=== PATIENT | female | born 1955 | race Caucasian/White ===

== ENCOUNTER 2019-11-18 08:58 | Outpatient (CLI) | payer BC, SELFPAY ==
[2019-11-18 09:32] LABS: Blood Urea Nitrogen 12 mg/dL (7-17); Calcium 9.3 mg/dL (8.4-10.2); Carbon Dioxide 28 mmol/L (22-30); Chloride 99 mmol/L (98-107); Estimated Glomerular Filt Rate > 60; Glucose 215 mg/dL (65-105); Sodium 135 mmol/L (137-145)
== END 2019-11-18 08:59 | disposition home or self-care (01) ==
LOC: ANHSURGERY 09:01
PROVIDERS: Anesthesiology; PCP Internal Medicine Infectious Disease; Visit Provider Orthopaedic Surgery
DX: E11.9 Type 2 diabetes mellitus without complications (principal)
CPT/HCPCS: 36415; 80048

== ENCOUNTER 2019-11-22 01:44 | Day surgery (SDC) | payer BC, SELFPAY ==
[2019-11-14 09:09] VITALS: BMI 35.7
[2019-11-22] VITALS (10 sets, daily range): BP systolic 120–145; BP diastolic 57–76; PULSE 52–57; RESP 10–20; TEMP 36.5–36.8; O2SAT 92–99
[2019-11-22] MEDS: LACTATED RINGERS 1,000 ML 30 ML IV CONT (07:30)
--- NOTE | 2019-11-22 08:17 | WPDHPUPDATE1 ---
History and Physical Update Update Date/Time: 11/22/19 08:17 History and Physical has been reviewed, including an updated exam of the patient. There are NO changes in the patient's condition. Risks, benefits, and alternatives have been discussed and questions answered. Patient agrees to proceed with procedure.
--- NOTE | 2019-11-22 08:34 | WPDANESEPPF ---
Anes - Initial Pre Proc Eval Procedure: Operation Date: 11/22/19 09:00 Proposed Procedures p Left Knee Arthroscopic Medial Meniscectomy - Enoch Pate MD Date/Time: 11/22/19 08:34 Surgeon: Enoch Pate MD Pre Op Diagnosis: Left Knee Medial Meniscus Tear Patient Data Age: 64 Gender: F Height: 1.65 m Weight: 99.1 kg Last Vital Signs Temp 36.8 C 11/22/19 07:05 Pulse 53 L 11/22/19 07:05 Resp 20 11/22/19 07:05 BP 122/73 11/22/19 07:05 Pulse Ox 97 11/22/19 07:05 Allergies Allergy/AdvReac Type Severity Reaction Status Date / Time codeine AdvReac Unknown n/v Verified 11/22/19 07:39 Home Medications Medication Instructions Recorded Confirmed Type aspirin 81 mg PO DAILY 11/14/19 11/22/19 History atorvastatin 20 mg PO DAILY 11/14/19 11/22/19 History dulaglutide [Trulicity] 1.5 mg SUBCUT WEEKLY 11/14/19 11/22/19 History ezetimibe 10 mg PO HS 11/14/19 11/22/19 History fluoxetine 40 mg PO DAILY 11/14/19 11/22/19 History lansoprazole 40 mg PO DAILY 11/14/19 11/22/19 History lisinopril-hydrochlorothiazide 1 tablet PO DAILY 11/14/19 11/22/19 History metformin 500 mg PO BID 11/14/19 11/22/19 History metoprolol tartrate 25 mg PO DAILY 11/14/19 11/22/19 History omega 2-lis-ham-fish oil [Fish Oil] 1 cap PO DAILY 11/14/19 11/22/19 History solifenacin [Vesicare] 10 mg PO DAILY 11/14/19 11/22/19 History Patient hx anesthesia problems: none Family hx anesthesia problems: none PMFSH Past Medical History Medical History (Updated 11/21/19 @ 10:16 by Abdullahi Sanders DO) Acute medial meniscus tear of left knee CAD (coronary artery disease) GERD (gastroesophageal reflux disease) History of heart attack Hyperlipidemia Hypertension Surgical History Surgical History (Updated 11/22/19 @ 08:35 by Abdullahi Sanders DO) History of appendectomy History of cholecystectomy History of coronary artery stent placement x1 10/2018 History of hysterectomy Social History Social History Smoking status: Never smoker Alcohol intake: never Anes - Eval Final PreProcedure Day of Procedure 11/22/19 08:34 Patient weight: obese Heart: regular rate and rhythm Lungs: clear to auscultation and normal air movement Airway: Mallampati scale class II Neurological: alert and oriented Last oral intake: >/= 8 hours ASA classification: III Emergent: no Anesthetic plan: proceed Anesthesia type and monitoring: general LMA and standard monitoring Informed Consent: The patient's anesthetic plan and its attendant risks and benefits were discussed with the patient/family/POA. Questions were solicited and answers provided to the satisfaction of the patient/family/POA.
[2019-11-22] MEDS: BUPIVACAINE/EPINEPHRINE 0.5% 10 ML VIAL 20 ML INFILTRATE (09:12)
[2019-11-22] MEDS: ceFAZolin 2 GM/D5W 50 ML 2 GM/50 ML BAG IVPB (09:27)
--- NOTE | 2019-11-22 10:05 | SUR.OPER ---
ebl:5cc
--- NOTE | 2019-11-22 10:40 | PM.PROC ---
Procedure Note - Detailed Date of procedure: 11/22/19 Pre-op diagnosis: Left Knee Medial Meniscus Tear Medial meniscus tear. Post-op diagnosis: other (1. Medial meniscus tear. 2. Ostochondral defect of medial femoral condyle.) Procedure performed: 1. Arthroscopic partial medial meniscectomy. 2. Microfacture of the medial femoral condyle. Anesthesia: GETA Surgeon: Enoch Pate MD Estimated blood loss (mL): 5 Complications: None Condition: stable Findings: Brief History: The patient complained of knee pain, swelling and mechanical symptoms despite conservative treatment. MRI confirmed the presence of a meniscus tear. Operative Findings: Complex medial meniscus tear. Also 1cm osteochondral defect at the central weight bearing medial femoral condyle. Lateral compartement normal. Patellofemoral grade 2/3 chondromalacia. Procedure Details: The patient was identified and the surgical site confirmed and signed in the preoperative holding area. Antibiotics were started per protocol. She was brought to the operative room and transferred to the OR table. A general anesthetic was administered. Supine position with the operative lower extremity position in the leg fofana after placement of a well padded tourniquet. The leg support was lowered and the contralateral limb was supported with a soft bolster. The knee was prepped and draped in the usual sterile fashion. A time-out was performed. The portal sites were marked and infiltrated with 0.5% Marcaine 20 mL. The limb was exsanguinated and the tourniquet inflated to 300 mL Hg. Standard inferolateral and inferomedial portals were established. Inflow was obtained with the saline pump. The camera was introduced. Diagnostic inspection of the joint was accomplished. The meniscus was debrided with the arthroscopic shaver and punches until stable. Microfracture was performed on the medial femur. The curettes were used to debride to a stable rim. The microfracture awls were used to create 4 channels of bone marrow stimulation. The arthroscopic instruments were removed. The tourniquet released and wounds closed with subcutaneous 3-0 Monocryl absorbable suture. Steri strips and a sterile dressing were applied. A light elastic wrap was placed. The patient was extubated and brought to the recovery room in stable condition.
== END 2019-11-22 12:07 | disposition home or self-care (01) ==
PROVIDERS: Visit Provider Orthopaedic Surgery
PROC: (CPT 29870; principal; 2019-11-22 09:00)
DX: M23.332 Other meniscus derangements, other medial meniscus, left knee (principal); M94.262 Chondromalacia, left knee; M24.10 Other articular cartilage disorders, unspecified site; I10 Essential (primary) hypertension; E78.5 Hyperlipidemia, unspecified; I25.2 Old myocardial infarction; I25.10 Atherosclerotic heart disease of native coronary artery without angina pectoris; K21.9 Gastro-esophageal reflux disease without esophagitis; E11.9 Type 2 diabetes mellitus without complications; Z79.82 Long term (current) use of aspirin; Z79.84 Long term (current) use of oral hypoglycemic drugs; Z95.5 Presence of coronary angioplasty implant and graft; E66.9 Obesity, unspecified; Z68.36 Body mass index [BMI] 36.0-36.9, adult
CPT/HCPCS: 29881; 29879; J0690; J1100; J2405; J2704; J3010; J7120

== ENCOUNTER → 2021-05-11 08:12 | Outpatient (CLI) | payer MEDICARE, SELFPAY ==
--- NOTE | ~2021-05-11 | MR_ITS ---
EXAMINATION: MR shoulder LT wo con DATE: 05/11/2021 09:10 INDICATION: Left shoulder pain TECHNIQUE: Magnetic resonance imaging (MRI) of the left shoulder was performed without intravenous co ntrast. Sequences included axial PD-weighted FS FSE, coronal oblique PD-weighted FS FSE, coronal obli que T2-weighted FS FSE, sagittal PD-weighted FS FSE, and sagittal T1-weighted SE. COMPARISON: Left shoulder radiographs dated 05/03/2021 FINDINGS: Coracoacromial arch: The acromion undersurface is curved in morphology (type II). Small anterior subacromial spur at the a cromial attachment of the normal coracoacromial ligament. Mild to moderate acromioclavicular osteoart hritis with small inferiorly directed osteophytes at the lateral head of the clavicle.. Rotator cuff: Moderate to severe supraspinatus and moderate infraspinatus tendinopathy. There is bursal sided frayi ng along the distal insertion of the supraspinatus tendon with very small tear seen on single images of both the coronal PD and T2-weighted sequences at the mid superior facet footplate of the supraspin atus which involves up to two thirds of the tendon thickness at this location. The subscapularis and teres minor tendons are normal. Normal rotator cuff muscle bulk and signal. Biceps tendon, glenoid labrum and glenohumeral cartilage: Long head of the biceps tendon is normal. There is an accessory head of the long head biceps tendon w hich appears contiguous with some the anteriormost fibers of the supraspinatus tendon. There is a sma ll tear along the peripheral free edge at the 10:30-11:30 position of the posterior superior glenoid labrum. Glenohumeral cartilage is normal. Fluid: Physiologic amount of fluid in the glenohumeral joint and biceps tendon sheath. No loose osteochondra l bodies. Small amount of fluid in the subacromial/subdeltoid bursa consistent with mild bursitis. Bones: Normal marrow signal with no edema, fracture or abnormal marrow replacing process. IMPRESSION: 1. Moderate to severe supraspinatus and infraspinatus tendinopathy with bursal sided fraying and more discrete very small moderate severity bursal sided tear at the superior facet footplate of the supra spinatus tendon. 2. Small tear along the peripheral free edge of the posterior superior glenoid labrum. 3. Mild subacromial/subdeltoid bursitis. 4. Mild to moderate acromioclavicular osteoarthritis. Reviewed, dictated and finalized at location B. IMPRESSION: 1. Moderate to severe supraspinatus and infraspinatus tendinopathy with bursal sided fraying and more discrete very small moderate severity bursal sided tear at the superior facet footplate of the supraspinatus tendon. 2. Small tear along the peripheral free edge of the posterior superior glenoid labrum. 3. Mild subacromial/subdeltoid bursitis. 4. Mild to moderate acromioclavicular osteoarthritis.
== END ==
PROVIDERS: PCP Internal Medicine Infectious Disease; Visit Provider Orthopaedic Surgery
DX: S43.432A Superior glenoid labrum lesion of left shoulder, initial encounter (principal); M75.52 Bursitis of left shoulder; M19.012 Primary osteoarthritis, left shoulder
CPT/HCPCS: 73221

== ENCOUNTER 2021-06-10 13:13 | Outpatient (CLI) | payer MEDICARE, SELFPAY ==
--- NOTE | 2021-06-10 13:18 | ECG_ITS ---
Measurements Intervals [place] Rate: 52 P: 7 MO: 137 QRS: 4 QRSD: 105 T: 30 QT: 480 QTc: 450 Interpretive Statements SINUS BRADYCARDIA EARLY PRECORDIAL R/S TRANSITION BORDERLINE ST ABNORMALITY- ANTERIOR LEADS BASELINE ARTIFACT- I, II, III, AVR, AVL, AVF BORDERLINE ECG Electronically Signed On 06-10-2021 13:43:10 CDT by Augustus Silva D.O.
[2021-06-10 13:52] LABS: Anion Gap 9 mmol/L (8-16); Blood Urea Nitrogen 15 mg/dL (7-17); Calcium 9.5 mg/dL (8.4-10.2); Carbon Dioxide 28 mmol/L (22-30); Chloride 101 mmol/L (98-107); Estimated Glomerular Filt Rate > 60; Glucose 133 mg/dL (65-110); Sodium 138 mmol/L (137-145)
== END 2021-06-10 13:14 | disposition home or self-care (01) ==
LOC: ANHSURGERY 13:16
PROVIDERS: Anesthesiology; PCP Internal Medicine Infectious Disease; Visit Provider Orthopaedic Surgery
DX: Z01.818 Encounter for other preprocedural examination (principal); E78.5 Hyperlipidemia, unspecified; I10 Essential (primary) hypertension; E11.9 Type 2 diabetes mellitus without complications; F17.210 Nicotine dependence, cigarettes, uncomplicated; Z79.899 Other long term (current) drug therapy
CPT/HCPCS: 36415; 80048; 93005

== ENCOUNTER 2021-06-17 01:16 | Day surgery (SDC) | payer MEDICARE, SELFPAY ==
[2021-06-09 13:27] VITALS: BMI 35.9
[2021-06-17] VITALS (10 sets, daily range): BP systolic 81–127; BP diastolic 43–74; PULSE 46–54; RESP 12–20; TEMP 36.1–36.4; O2SAT 95–100; BMI 35.6
--- NOTE | 2021-06-17 07:30 | WPDHPUPDATE1 ---
History and Physical Update Update Date/Time: 06/17/21 07:30 History and Physical has been reviewed, including an updated exam of the patient. There are NO changes in the patient's condition. Risks, benefits, and alternatives have been discussed and questions answered. Patient agrees to proceed with procedure.
[2021-06-17] MEDS: LACTATED RINGERS 1,000 ML 30 ML IV CONT ×2 (08:50→12:11)
[2021-06-17] MEDS: KETOROLAC 15 MG/ML VIAL (*BKC) IV PUSH (08:56)
[2021-06-17] MEDS: ACETAMINOPHEN 500 MG TABLET 1000 MG PO (08:56)
[2021-06-17 09:09] LABS: Glucose Point of Care 142 mg/dl (65-105)
--- NOTE | 2021-06-17 09:35 | WPDANESEPPF ---
Anes - Initial Pre Proc Eval Procedure: Operation Date: 06/17/21 10:30 Proposed Procedures p Left Arthroscopic Rotator Cuff Repair with Subacromial Decompression - Enoch Pate MD Date/Time: 06/17/21 09:35 Surgeon: Enoch Pate MD Pre Op Diagnosis: Complete Rotator Cuff Tear Left Shoulder Patient Data Age: 66 Gender: F Height: 1.65 m Weight: 97.3 kg Last Vital Signs Temp 36.4 C L 06/17/21 08:25 Pulse 51 L 06/17/21 08:25 Resp 16 06/17/21 08:25 BP 101/74 06/17/21 08:25 Pulse Ox 100 06/17/21 08:25 Allergies Allergy/AdvReac Type Severity Reaction Status Date / Time codeine AdvReac Unknown Nausea Verified 06/17/21 08:38 Home Medications Medication Instructions Recorded Confirmed Type aspirin 81 mg PO DAILY 11/14/19 06/17/21 History atorvastatin 20 mg PO HS 11/14/19 06/09/21 History ezetimibe 10 mg PO HS 11/14/19 06/09/21 History fluoxetine 40 mg PO DAILY 11/14/19 06/17/21 History lansoprazole 40 mg PO DAILY 11/14/19 06/09/21 History lisinopril-hydrochlorothiazide 1 tablet PO DAILY 11/14/19 06/09/21 History metformin 500 mg PO BID 11/14/19 06/09/21 History metoprolol tartrate 25 mg PO DAILY 11/14/19 06/17/21 History solifenacin [Vesicare] 10 mg PO DAILY 11/14/19 06/17/21 History cholecalciferol (vitamin D3) 125 125 mcg PO DAILY 06/04/21 06/17/21 History mcg (5,000 unit) capsule dulaglutide 0.75 mg/0.5 mL 0.75 mg SUBCUT WEEKLY 06/04/21 06/09/21 History subcutaneous pen injector insulin degludec 100 unit/mL (3 35 unit SUBCUT DAILY ml 06/04/21 06/09/21 History mL) subcutaneous pen tramadol 50 mg tablet 50 mg PO Q6H PRN #30 tablet 06/04/21 06/09/21 Rx Laboratory Tests 06/17/21 09:03 POC Capillary Glucose 142 mg/dl H mg/dl (65-105) Patient hx anesthesia problems: none Family hx anesthesia problems: none Results Review: All pre-operative results and documents have been reviewed as part of the pre-operative evaluation. [facility]LY [facility] Past Medical History Medical History Acute medial meniscus tear of left knee CAD (coronary artery disease) GERD (gastroesophageal reflux disease) History of heart attack Hyperlipidemia Hypertension Osteoarthritis of left knee Surgical History Surgical History History of appendectomy History of cholecystectomy History of coronary artery stent placement x1 10/2018 History of hysterectomy Family History Family History Other Family history of malignant neoplasm of breast in first degree relative Social History Social History Smoking packs per day: 2 Smoking cigarettes per day: 40.0 Years smoked: 53 Smoking pack-years: 106.00 Smoking status: Never smoker Tobacco type: e-cigarettes/vaping Smoking end date: 09/18/18 Additional smoking assessment comments: QUIT SMOKING CIGARETTES IN 2019, STILL VAPES ON OCCASION Alcohol intake: never Substance use: never Substance use type: does not use Living arrangements: with family Spiritual care concerns: No Anes - Eval Final PreProcedure Day of Procedure 06/17/21 09:35 Patient weight: obese Heart: regular rate and rhythm Lungs: clear to auscultation Airway: Mallampati scale class II Neurological: alert and oriented Last oral intake: >/= 8 hours ASA classification: III Emergent: no Anesthetic plan: proceed Anesthesia type and monitoring: general ETT and standard monitoring Results Review: All pre-operative results and documents have been reviewed as part of the pre-operative evaluation. Informed Consent: The patient's anesthetic plan and its attendant risks and benefits were discussed with the patient/family/POA. Questions were solicited and answers provided to the satisfaction of the patient/family/POA.
--- NOTE | 2021-06-17 10:02 | WPDANESPNB ---
Anes - Peripheral Nerve Block Date/Time: 06/17/21 10:02 I have discussed with the patient/family/POA the placement of a peripheral nerve block for post-operative pain management, including associated risks, benefits, complications, and side effects. Alternative methods of post-operative analgesia were detailed. Questions were solicited and answers provided to the satisfaction of the patient/family/POA. Time-Out: A pre-procedural Time-Out was completed immediately before starting the procedure and confirmed: Patient Identification, Site, Procedure, Patient Position and the Availability of Requisite Equipment. Clinical Indications: Acute post-operative pain management requested by the operative surgeon. Nerve Block Insertion Note Anes-nerve block: interscalene left Patient position: supine Skin prep: chlorhexidine Needle: 22 gauge, stimulating, insulated echogenic needle. Needle length: 50 mm Technique: ultrasound Injectate: bupivacaine 0.5% with epi 5 mcg/ml (30cc no epi) and dexamethasone (mg) (8mg) Observations: tolerated well Complications: none Procedure start time:: 1001 Procedure end time:: 1006
[2021-06-17] MEDS: ceFAZolin 2 GM/D5W 50 ML 2 GM/50 ML BAG IVPB (10:09)
[2021-06-17 12:31] LABS: Glucose Point of Care 116 mg/dl (65-105)
--- NOTE | 2021-06-17 17:48 | W.PM.PROC2 ---
Procedure Note - Detailed Date of Procedure 06/17/21 Pre-op Diagnosis 1. Left rotator cuff tear 2. Subacromial impingement Post-op Diagnosis same Procedure Performed 1. Arthroscopic rotator cuff repair 2. Arthroscopic subacromial decompression Surgeon Enoch Pate MD Hang Gliding Instructor Gia Christina PA-C Anesthesia general and regional ( interscalene block) Findings Medium-sized crescent tear. Full-thickness. No significant retraction. 2 tunnel Rip-stop technique Description of Procedure Physician funeral director's assistant, Gia Christina PA-C, required for surgery; including patient positioning, draping, arthroscopic camera operation, maintaining instrument position, suture retrieval, wound closure, and dressing and sling placement. Preoperative antibiotics were given. An interscalene block was administered in the preoperative area. The patient was bought brought to the operating room. A general anesthetic was administered. The patient was carefully positioned in the beach chair position. The head and neck were carefully positioned. The non operative extremity was also carefully positioned. The shoulder was prepped and draped in the usual sterile fashion. Examination was performed. Standard posterior and anterior arthroscopic portals were established. Inflow achieved with the arthroscopic pump using saline and epinephrine. The glenohumeral joint was carefully inspected. Minimal anterior superior labral fraying, and a small area of humeral chondromalacia grade 2. Attention was turned to the subacromial space. A complete bursectomy was performed. The rotator cuff and footprint were lightly debrided. A modest acromioplasty was performed. The tear configuration was carefully assessed. At this point, 2 tunnels were created at the rotator cuff. The ArthroTunneler technique was utilized. Three sutures were passed through each tunnel. All sutures were then passed through the cuff tissue. The sutures were tied arthroscopically. The arthroscopic instruments were removed. The wounds were closed with 3-0 Monocryl subcuticular suture and steri strips. There were no complications. A sling was applied and the patient brought to the recovery room. Estimated Blood Loss -20.0 Pathology none sent Complications No immediate complications Condition stable Disposition PACU
== END 2021-06-17 14:25 | disposition home or self-care (01) ==
PROVIDERS: PCP Internal Medicine Infectious Disease; Visit Provider Orthopaedic Surgery
PROC: (CPT 29805; principal; 2021-06-17 10:30)
DX: M75.122 Complete rotator cuff tear or rupture of left shoulder, not specified as traumatic (principal); M75.42 Impingement syndrome of left shoulder; G89.18 Other acute postprocedural pain; I25.10 Atherosclerotic heart disease of native coronary artery without angina pectoris; I10 Essential (primary) hypertension; E78.5 Hyperlipidemia, unspecified; I25.2 Old myocardial infarction; K21.9 Gastro-esophageal reflux disease without esophagitis; Z95.5 Presence of coronary angioplasty implant and graft; F17.290 Nicotine dependence, other tobacco product, uncomplicated; E66.9 Obesity, unspecified; Z68.35 Body mass index [BMI] 35.0-35.9, adult; Z79.82 Long term (current) use of aspirin; Z79.84 Long term (current) use of oral hypoglycemic drugs; Z79.4 Long term (current) use of insulin
CPT/HCPCS: 29827; 29826; 64415; 36415; 80048; 82948; 93005; A4565; A9270; J0330; J0461; J0690; J1100; J1170; J1885; J2250; J2370; J2405; J2704; J3010; J7120

== ENCOUNTER 2021-12-09 14:21 | Outpatient (CLI) | payer MEDICARE, SELFPAY ==
--- NOTE | 2021-12-09 14:46 | ECG_ITS ---
Measurements Intervals [place] Rate: 54 P: 22 ME: 149 QRS: -3 QRSD: 100 T: 20 QT: 462 QTc: 441 Interpretive Statements SINUS BRADYCARDIA NONSPECIFIC ST AND T-WAVE ABNORMALITY ABNORMAL ECG NO PREVIOUS ECG AVAILABLE FOR COMPARISON Electronically Signed On 12-09-2021 16:05:07 CDT by Zachary Wyatt M.D.
[2021-12-09 15:37] LABS: Anion Gap 6 mmol/L (8-16); Blood Urea Nitrogen 11 mg/dL (7-17); Calcium 9.1 mg/dL (8.4-10.2); Carbon Dioxide 30 mmol/L (22-30); Chloride 99 mmol/L (98-107); Estimated Glomerular Filt Rate > 60; Glucose 117 mg/dL (65-110); Potassium 4.2 mmol/L (3.4-5.0); Sodium 135 mmol/L (137-145)
== END 2021-12-09 14:22 | disposition home or self-care (01) ==
PROVIDERS: Anesthesiology; PCP Internal Medicine Infectious Disease; Visit Provider Orthopaedic Surgery
DX: E11.9 Type 2 diabetes mellitus without complications (principal); I10 Essential (primary) hypertension; Z01.818 Encounter for other preprocedural examination; R94.31 Abnormal electrocardiogram [ECG] [EKG]
CPT/HCPCS: 36415; 80048; 93005

== ENCOUNTER 2021-12-17 00:42 | Day surgery (SDC) | payer MEDICARE, SELFPAY ==
[2021-12-07 09:44] VITALS: BMI 35.6
--- NOTE | 2021-12-07 10:01 | PC.NURSE ---
Report to the Outpatient Waiting Room, entrance under the green pavilion located off [facility], at time __12:30PM on date ___12/17/21____. OR Time: __2:30PM . - You and your visitor will be asked a series of questions to screen for COVID 19 for your protection. - A mask is required within the hospital. Preoperative COVID Testing Requirements: PLEASE BRING COVID CARD TO HOSPITAL No COVID Test needed if: (proof is required; if not received patient will have Rapid Test prior to entry) - Patient has received COVID Vaccine at least 14 days prior to procedure date or - Patient has positive COVID test result within last 90 days of surgery date. COVID Test needed if above criteria is not met If not COVID vaccinated a COVID test must be conducted within 72 hours of surgery and patient is asked to isolate self from time of testing until procedure. You will go to the [facility] for your COVID testing. The [facility] site is located at the corner of [address] [facility]. You will only be called if COVID results are positive and your surgeon may reschedule your elective surgery date. Patients may have clear liquids (water, carbonated beverages, clear teas, apple juice) until 3 hours prior to surgery with a maximum of 20 ounces. - No food from midnight until time of surgery - Infants may have breast milk until 4 hours before surgery, formula 6 hours prior to surgery. - Children will be allowed to drink immediately following surgery. If applicable, please bring a bottle or sippy cup to assist with drinking. Juice, water, soda, and popsicles are readily available. For infants on formula, please bring formula the day of surgery. Pacifiers are allowed. Take the following medications with a SIP of water the morning of surgery: ___FLUOXETINE, METOPROLOL, 1/2 DOSE-17 UNITS TRESIBA Medications to discontinue per physician ALL VITAMINS/SUPPLEMENTS AND NSAIDS(IBUPROFEN & ALEVE) 7 DAYS PRE-OP NO NEED TO HOLD ASPIRIN PER DR WILSON R/T HEART STENT Date to take last dose___12/10/21 Please no make-up, nail nepali, hairspray, perfume, deodorant, or body powder the day of surgery. No jewelry (including any body piercings) or valuables the day of surgery, leave them at home. Please take a shower or bath the night before, or the morning of, surgery with an antibacterial soap. Wear comfortable, loose fitting clothing. Children are encouraged to wear pajamas. - Jewelry must be removed prior to entering the operating room. Rings and piercings that are not removed may be cut off. - The hospital will not accept responsibility for valuables. - Please leave all valuables, including medications, at home the day of surgery. If you are going home after surgery, a licensed school bus driver must drive you home. - NO public transportation without another adult. - We recommend that an adult stay with you for 24 hours following discharge. - We also recommend that you do not drive, make important decision, drink alcoholic beverages, or take any drugs that were not prescribed by your health care provider for at least 24 hours after your discharge time. For Pediatric surgeries, we recommend two adults accompany the child home (only one inside the building at this time). One visitor will be allowed to accompany the patient into the hospital. Patients visitor will be instructed to remain with patient at all times or leave the building. We will allow the visitor to come back to the postoperative area when patient is ready. Follow any additional instructions given to you from your surgeon. Telephone instructions given to __PATIENT and asked if any additional questions and then verbalized understanding. Patient advised to call surgeon office or pre surgery nurse liaison [phone] if any additional questions.
--- NOTE | 2021-12-17 07:20 | WPDHPUPDATE1 ---
History and Physical Update Update Date/Time: 12/17/21 07:20 History and Physical has been reviewed, including an updated exam of the patient. There are NO changes in the patient's condition. Risks, benefits, and alternatives have been discussed and questions answered. Patient agrees to proceed with procedure.
[2021-12-17] MEDS: ACETAMINOPHEN 500 MG TABLET 1000 MG PO (13:04)
[2021-12-17 13:21] VITALS: BP 118/74; PULSE 55; RESP 16; TEMP 36.3; O2SAT 99
[2021-12-17 13:22] LABS: Glucose Point of Care 133 mg/dl (65-105)
[2021-12-17] MEDS: KETOROLAC 15 MG/ML VIAL (*BKC) IV PUSH (13:29)
--- NOTE | 2021-12-17 14:09 | WPDANESEPPF ---
Anes - Initial Pre Proc Eval Procedure: Operation Date: 12/17/21 14:30 Proposed Procedures p Right Carpal Tunnel Release - Enoch Pate MD Date/Time: 12/17/21 14:09 Surgeon: Enoch Pate MD Pre Op Diagnosis: right carpal tunnel syndrome Patient Data Age: 66 Gender: F Height: 1.65 m Weight: 97.8 kg Last Vital Signs Temp 36.3 C L 12/17/21 13:21 Pulse 55 L 12/17/21 13:21 Resp 16 12/17/21 13:21 BP 118/74 12/17/21 13:21 Pulse Ox 99 12/17/21 13:21 Allergies Allergy/AdvReac Type Severity Reaction Status Date / Time codeine AdvReac Mild Nausea Verified 12/17/21 12:39 Home Medications Medication Instructions Recorded Confirmed Type atorvastatin 20 mg PO HS 11/14/19 12/17/21 History cholecalciferol (vitamin D3) 125 125 mcg PO DAILY 06/04/21 12/17/21 History mcg (5,000 unit) capsule dulaglutide 0.75 mg/0.5 mL 0.75 mg SUBCUT WEEKLY 06/04/21 12/17/21 History subcutaneous pen injector insulin degludec 100 unit/mL (3 35 unit SUBCUT DAILY ml 12/06/21 12/17/21 History mL) subcutaneous pen aspirin [Aspir-81] 81 mg PO HS 12/07/21 12/17/21 History coenzyme Q10 [CoQ-10] 200 mg PO DAILY 12/07/21 12/17/21 History ezetimibe 10 mg PO HS 12/07/21 12/17/21 History fluoxetine 40 mg PO QAM 12/07/21 12/17/21 History ibuprofen 400 mg PO Q6H PRN 12/07/21 12/17/21 History lansoprazole 30 mg PO QAM 12/07/21 12/17/21 History lisinopril-hydrochlorothiazide 1 tablet PO QAM 12/07/21 12/17/21 History metformin 500 mg PO BID 12/07/21 12/17/21 History metoprolol succinate 25 mg PO QAM 12/07/21 12/17/21 History naproxen sodium [Aleve] 440 mg PO BID PRN 12/07/21 12/17/21 History omega 4-edj-yov-fish oil [[place] 3 1 cap PO DAILY 12/07/21 12/17/21 History Fish Oil] solifenacin 10 mg PO QAM 12/07/21 12/17/21 History Laboratory Tests 12/17/21 13:19 POC Capillary Glucose 133 mg/dl H mg/dl (65-105) Patient hx anesthesia problems: none Family hx anesthesia problems: none Results Review: All pre-operative results and documents have been reviewed as part of the pre-operative evaluation. [facility] Past Medical History Medical History Acute medial meniscus tear of left knee CAD (coronary artery disease) GERD (gastroesophageal reflux disease) History of heart attack Hyperlipidemia Hypertension Osteoarthritis of left knee Surgical History Surgical History History of appendectomy History of cholecystectomy History of coronary artery stent placement x1 10/2018 History of hysterectomy History of repair of left rotator cuff (~06/17/21) w/Subacromial Decompression Family History Family History Other Family history of malignant neoplasm of breast in first degree relative Social History Social History Smoking packs per day: 1 Smoking cigarettes per day: 20.0 Years smoked: 45 Smoking pack-years: 45.00 Smoking status: Current every day smoker Tobacco type: e-cigarettes/vaping Smoking end date: 09/18/18 Additional smoking assessment comments: VAPES DAILY, STOPPED CIG 2018 Alcohol intake: never Substance use: never Substance use type: does not use Living arrangements: with family Additional living arrangements comments: [facility] Spiritual care concerns: No Anes - Eval Final PreProcedure Day of Procedure 12/17/21 14:09 Patient weight: obese Heart: regular rate and rhythm Lungs: decreased breath sounds Airway: Mallampati scale class II Neurological: alert and oriented Last oral intake: >/= 8 hours ASA classification: III Emergent: no Anesthetic plan: proceed Anesthesia type and monitoring: general GIVS and standard monitoring Results Review: All pre-operative results and documents have been reviewed as part of the pre-operative
[2021-12-17] MEDS: ceFAZolin 2 GM/D5W 50 ML 2 GM/50 ML BAG IVPB (14:12)
[2021-12-17 14:49] VITALS: BP 114/52; PULSE 50; RESP 16; O2SAT 98
[2021-12-17] MEDS: LACTATED RINGERS 1,000 ML 30 ML IV CONT (14:49)
[2021-12-17 15:00] LABS: Glucose Point of Care 117 mg/dl (65-105)
[2021-12-17 15:15] VITALS: BP 132/86; PULSE 51; RESP 16; O2SAT 98
[2021-12-17 15:30] VITALS: BP 140/72; PULSE 51; RESP 16; O2SAT 98
--- NOTE | 2021-12-17 15:41 | P.OP_ITS ---
Procedure Note - Detailed Date of Procedure 12/17/21 Pre-op Diagnosis right carpal tunnel syndrome Post-op Diagnosis Same Procedure Performed Right Carpal tunnel release Surgeon Enoch Pate MD Customer Professional Gia Christina PA-C Anesthesia General Description of Procedure Operative details. After sedation was administer, the hand was prepped and draped in the usual sterile fashion. The proposed incision was marked using typical anatomic landmarks. 5ML 0.5% Marcaine with epinephrine was injected along the incision line and at the distal forearm. The limb was exsanguinated and the tourniquet inflated to 250 millimeters of mercury. A longitudinal incision was taken sharply. Dissection was brought down to the transverse carpal ligament. Under direct vision the ligament was incised sharply. The proximal release was carried out with dissection scissors. The contents of the carpal canal were protected with a [place] elevator. The transverse carpal ligament was confirmed to be widely patent. The wound was closed with interrupted Prolene suture. A bulky sterile splint was applied. Patient was brought to the recovery room in stable condition. Estimated Blood Loss 1 Pathology None sent Complications No immediate complications Condition Stable Disposition PACU
== END 2021-12-17 15:40 | disposition home or self-care (01) ==
PROVIDERS: PCP Internal Medicine Infectious Disease; Visit Provider Orthopaedic Surgery
PROC: (CPT 64721; principal; 2021-12-17 14:30)
DX: G56.01 Carpal tunnel syndrome, right upper limb (principal); Z79.82 Long term (current) use of aspirin; Z79.84 Long term (current) use of oral hypoglycemic drugs; Z79.4 Long term (current) use of insulin; I25.10 Atherosclerotic heart disease of native coronary artery without angina pectoris; K21.9 Gastro-esophageal reflux disease without esophagitis; I25.2 Old myocardial infarction; E78.5 Hyperlipidemia, unspecified; I10 Essential (primary) hypertension; M17.12 Unilateral primary osteoarthritis, left knee; Z90.49 Acquired absence of other specified parts of digestive tract; Z95.5 Presence of coronary angioplasty implant and graft; F17.290 Nicotine dependence, other tobacco product, uncomplicated; E66.9 Obesity, unspecified; Z68.35 Body mass index [BMI] 35.0-35.9, adult
CPT/HCPCS: 64721; 36415; 80048; 82948; 93005; A9270; J0690; J1885; J2250; J3010; J7120

== ENCOUNTER 2022-04-05 09:53 | Outpatient (CLI) | payer MEDICARE, SELFPAY ==
--- NOTE | 2022-04-05 11:00 | NEURO_ITS ---
Impression: # Complains of numbness of left 5th finger. # Left ulnar neuropathy across the elbow of moderate degree. # Normal needle/EMG exam. # Clinical correlation recommended. Nerve Conduction Studies Anti Sensory Summary Table Stim Site NR Peak (ms) P-T Amp (?V) Site1 Site2 Delta-P (ms) Dist (cm) Bhavin (m/s) Left Median Anti Sensory (2-3nd Digit) Wrist 3.2 17.5 Wrist 2-3nd Digit 3.2 14.0 44 Wrist 3.2 36.8 Wrist 2-3nd Digit 3.2 14.0 44 Left Radial Anti Sensory (Base 1st Digit) Wrist 2.0 9.9 Wrist Base 1st Digit 2.0 0.0 Left Ulnar Anti Sensory (5th Digit) Wrist 2.5 55.1 Wrist 5th Digit 2.5 14.0 56 Motor Summary Table Stim Site NR Onset (ms) O-P Amp (mV) Site1 Site2 Delta-0 (ms) Dist (cm) Bhavin (m/s) Left Median Motor (Abd Poll Brev) Wrist 3.0 1.8 Elbow Wrist 4.7 28.0 60 Elbow 7.7 1.2 Left Ulnar Motor (Abd Dig Minimi) Wrist 2.6 5.8 A Elbow Wrist 5.5 28.0 51 A Elbow 8.1 4.4 B Elbow Wrist 3.4 21.0 62 B Elbow 6.0 4.5 F Wave Studies NR F-Lat (ms) L-R F-Lat (ms) Left Median (Mrkrs) (Abd Poll Brev) 26.55 Left Ulnar (Mrkrs) (Abd Dig Min) 27.89 EMG Side Muscle Nerve Root Ins Act Fibs Amp Dur Recrt Comment Left 1stDorInt Ulnar C8-T1 Nml Nml Nml Nml Nml Left Ext Indicis Radial (Post Int) C7-8 Nml Nml Nml Nml Nml Left Ext Digitorum Radial (Post Int) C7-8 Nml Nml Nml Nml Nml Left BrachioRad Radial C5-6 Nml Nml Nml Nml Nml Left PronatorTeres Median C6-7 Nml Nml Nml Nml Nml Left Abd Poll Brev Median C8-T1 Nml Nml Nml Nml Nml Left ABD Dig Min Ulnar C8-T1 Nml Nml Nml Nml Nml MTDD
== END 2022-04-05 09:54 | disposition home or self-care (01) ==
PROVIDERS: PCP Internal Medicine Infectious Disease; Visit Provider Orthopaedic Surgery
DX: G56.22 Lesion of ulnar nerve, left upper limb (principal)
CPT/HCPCS: 95886; 95909

== ENCOUNTER 2024-06-06 14:30 | Emergency (ER) | payer MEDICARE, SELFPAY ==
--- NOTE | ~2024-06-06 | XR_ITS ---
EXAMINATION: XR chest 2V DATE: 06/06/2024 15:24 INDICATION: Cough. Fever. TECHNIQUE: Frontal and lateral views of the chest were obtained. COMPARISON: Chest 2 views 01/20/2016 FINDINGS: There are airspace opacities overlying the lower lobes on the lateral view. No pleural effu dalia or pneumothorax. The heart size is normal. Surgical clips in the right upper quadrant are likely from cholecystectomy. IMPRESSION: 1. Airspace opacities overlying the lower lobes on the lateral view without correlate on the frontal view, consistent with atelectasis versus pneumonia. Reviewed, dictated and finalized at location A. IMPRESSION: 1. Airspace opacities overlying the lower lobes on the lateral view without cor relate on the frontal view, consistent with atelectasis versus pneumonia.
[2024-06-06 14:40] VITALS: BP 119/75; PULSE 72; RESP 16; TEMP 36.7; O2SAT 98
--- NOTE | 2024-06-06 15:13 | ED.URI ---
HPI - URI/Sore Throat General Chief Complaint: Upper Respiratory Infection Stated Complaint: Cough/Chest Congestion Time Seen by Provider: 06/06/24 15:04 Source: patient and RN notes reviewed Mode of arrival: ambulatory Limitations: no limitations History of Present Illness HPI Narrative: Patient presents today complaining of 1+ week history of nasal congestion, cough, chest congestion. For the last 3 days, patient has run a fever at night up to 102.4. Denies shortness of breath. Patient has taken Tylenol, Mucinex, DayQuil, NyQuil with little relief. No history of asthma or COPD. Patient does have history of rheumatoid arthritis and is on methotrexate. Related Data Home Medications Medication Instructions Recorded Confirmed atorvastatin 20 mg tablet 20 mg PO HS 11/14/19 01/26/22 cholecalciferol (vitamin D3) 125 125 mcg PO DAILY 06/04/21 01/26/22 mcg (5,000 unit) capsule dulaglutide 0.75 mg/0.5 mL 0.75 mg subcut WEEKLY 06/04/21 01/26/22 subcutaneous pen injector (Trulicity) insulin degludec 100 unit/mL (3 35 unit subcut DAILY 12/06/21 01/26/22 mL) subcutaneous pen (Tresiba FlexTouch U-100 insulin) aspirin 81 mg tablet,delayed 81 mg PO HS 12/07/21 01/26/22 release coenzyme Q10 100 mg capsule 200 mg PO DAILY 12/07/21 01/26/22 (CoQ-10) ezetimibe 10 mg tablet 10 mg PO HS 12/07/21 01/26/22 fluoxetine 40 mg capsule 40 mg PO QAM 12/07/21 01/26/22 ibuprofen 200 mg tablet 400 mg PO Q6H PRN Pain 12/07/21 01/26/22 lansoprazole 30 mg capsule,delayed 30 mg PO QAM 12/07/21 01/26/22 release lisinopril 20 1 tablet PO QAM 12/07/21 01/26/22 mg-hydrochlorothiazide 12.5 mg tablet metformin 500 mg tablet 500 mg PO BID 12/07/21 01/26/22 metoprolol succinate 25 mg 25 mg PO QAM 12/07/21 01/26/22 tablet,extended release 24 hr naproxen sodium 220 mg capsule 440 mg PO BID PRN Pain 12/07/21 01/26/22 (Aleve) omega 8-jgu-isn-fish oil 900 1 cap PO DAILY 12/07/21 01/26/22 mg-1,400 mg capsule,delayed release solifenacin 10 mg tablet 10 mg PO QAM 12/07/21 01/26/22 Allergies Allergy/AdvReac Type Severity Reaction Status Date / Time codeine AdvReac Mild Nausea Verified 01/26/22 15:24 Review of Systems Review of Systems: CONSTITUTIONAL: Denies body aches, chills, or sweats.+ fever EYES: Denies visual changes, redness, or discharge. ENT: Denies rhinorrhea, sore throat, or otalgia.+ congestion CARDIOVASCULAR: Denies chest pain, palpitations, or edema. RESPIRATORY: Denies dyspnea.+ cough, chest congestion GASTROINTESTINAL: Denies abdominal pain, nausea, vomiting, or diarrhea. GENITOURINARY: Denies dysuria or hematuria. SKIN: Denies rash, itching, or wounds. MUSCULOSKELETAL: Denies back pain, joint pain, or myalgia. NEUROLOGIC: Denies headache, numbness, tingling, or weakness. PSYCH: Denies depression or anxiety. [facility] Past Medical History Medical History Acute medial meniscus tear of left knee CAD (coronary artery disease) GERD (gastroesophageal reflux disease) History of heart attack Hyperlipidemia Hypertension Osteoarthritis of left knee Surgical History Surgical History History of appendectomy History of cholecystectomy History of coronary artery stent placement x1 10/2018 History of hysterectomy History of repair of left rotator cuff (~06/17/21) w/Subacromial Decompression Family History Family History Other Family history of malignant neoplasm of breast in first degree relative Social History Social History Smoking packs per day: 1 Smoking cigarettes per day: 20.0 Years smoked: 45 Smoking pack-years: 45.00 Smoking status: Current every day smoker Tobacco type: e-cigarettes/vaping Smoking end date: 09/18/18 Additional smoking asses
== END 2024-06-06 15:50 | disposition home or self-care (01) ==
PROVIDERS: Emergency Provider Nurse Practitioner; PCP Internal Medicine Infectious Disease
DX: J18.1 Lobar pneumonia, unspecified organism (principal); F17.290 Nicotine dependence, other tobacco product, uncomplicated; I25.10 Atherosclerotic heart disease of native coronary artery without angina pectoris; K21.9 Gastro-esophageal reflux disease without esophagitis; E78.5 Hyperlipidemia, unspecified; I10 Essential (primary) hypertension; M17.12 Unilateral primary osteoarthritis, left knee; I25.2 Old myocardial infarction; Z95.5 Presence of coronary angioplasty implant and graft
CPT/HCPCS: 71046; 99213; G0463